=== PATIENT | female | born 1965 | race Caucasian/White ===

== ENCOUNTER 2017-05-27 11:10 | Day surgery (SDC) | payer OTHER ==
[~2017-05-27 11:10] MED LIST: Buffered Lidocaine 0.9% SYRIN* 5 ML/SYR SYRINGE INTRADERM ONE; Sodium Citrate/Citric Acid* 15 ML UDC PO ONE
[2017-05-27] MEDS ORDERED: Sodium Citrate/Citric Acid* 15 ML UDC ONE (11:18)
[2017-05-27] MEDS ORDERED: ceFAZolin 2 GM PREMIX (*) 2 GM/50 ML BAG IVPB ONE (11:18)
[2017-05-27] MEDS ORDERED: Bupivacaine 0.25% SDV* 30 ML ONE (12:34)
[2017-05-27] MEDS ORDERED: fentaNYL* 50 MCG/ML 2 ML VIAL (100 MCG VIAL) ONE ×3 (12:46→16:24)
[2017-05-27] MEDS ORDERED: Midazolam* 1 MG/ML 2 ML VIAL (2 MG) ONE (12:46)
[2017-05-27] MEDS ORDERED: Propofol* 10 MG/ML 20 ML BTL IV PUSH ONE (12:47)
[2017-05-27] MEDS ORDERED: Naloxone* 0.4 MG/ML 1 ML VIAL IV PRN (13:28)
[2017-05-27] MEDS ORDERED: DiMENhydriNATE IV* 50 MG/ML VIAL IV PUSH PRN (13:28)
[2017-05-27] MEDS ORDERED: Ketorolac INJ* 30 MG/ML 1 ML VIAL ONE (14:49)
[2017-05-27] MEDS ORDERED: Dexamethasone IV* 4 MG/ML 1 ML (4 MG) ONE (14:49)
[2017-05-27] MEDS: fentaNYL* 50 MCG/ML 2 ML VIAL (100 MCG VIAL) IV PRN ×4 (15:52→16:13)
[2017-05-27] MEDS ORDERED: HYDROcodone/ACETAMIN 5-325 MG* 1 TAB ONE (16:18)
[2017-05-27] MEDS ORDERED: DiMENhydriNATE IV* 50 MG/ML VIAL ONE (16:45)
[2017-05-27 17:53] VITALS: BP 136/82
--- NOTE | 2017-05-30 07:18 | OP ---
OPERATIVE REPORT: DATE OF OPERATION: 05/27/17 DATE OF : 69 SURGEON: Nhan Henriquez MD SUPERVISOR ROSE GRADING: SATYA Bowling An teacher assistant was needed for the entirety of the procedure to aid in positioning of the arm and retraction. ANESTHESIOLOGIST: Dr. Taveras. ANESTHESIA: General. PRE-OP DIAGNOSES: 1. 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 2. Left scaphotrapezoid osteoarthritis. 3. Left volar wrist ganglion cyst. POST-OP DIAGNOSES: 1. 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 2. Left scaphotrapezoid osteoarthritis. 3. Left volar wrist ganglion cyst. OPERATIVE PROCEDURE: 1. Left thumb carpometacarpal arthroplasty. 2. Left distally based split flexor carpi radialis tendon transfer with some suspension and tendon interposition. 3. Left partial trapeziectomy. 4. Excision of left volar wrist ganglion cyst. INDICATIONS: Ilene has left thumb basal joint arthritis and advanced STT arthritis, ganglion cyst. She has done well with a right thumb carpometacarpal arthroplasty a year ago. She desires surgery on the left. She understands the risks and benefits. ESTIMATED BLOOD LOSS: 2 mL. COMPLICATIONS: None. FINDINGS: As expected. DESCRIPTION OF PROCEDURE: Ilene was seen in the preoperative holding area. The correct side, site, and procedure were identified. We came back to the operating room where the arm was prepped and draped in the usual fashion. A time- out was performed. The arm was exsanguinated. The Esmarch and the tourniquet was inflated to 250 mmHg. I then made a 2 to 3 cm longitudinal incision over the dorsal radial aspect of the thumb and over the trapezium. Dissection was carried down. The radial artery was dissected free and preserved throughout the case. Subperiosteal and capsular flaps were raised to expose the scaphotrapezial, carpometacarpal and trapezium-trapezoid joints. The soft tissue was released about the trapezium and then the trapezium was excised and handed off as a specimen. The FCR tendon was a bit frayed and its distal attachment was intact in the base of the wound. I then examined the scaphotrapezoid joint and indeed there was a full thickness cartilage loss. I took the osteotome and I excised the proximal 3 mm of the trapezoid. This was handed off as an additional specimen. I then made a drill tunnel using a 3.2 mm drill bit in the dorsoradial aspect of the thumb metacarpal base extending on to the volar ulnar articular surface of the base of the thumb metacarpal. I then came proximally and I made a 3-cm longitudinal incision over the distal FCR tendon sheath and over the volar tendon sheath. Dissection was carried down and the radial artery was dissected free proximal to the cyst. The radial artery was mobilized satisfactorily radially. Cyst was excised marginally and taken down back to the volar wrist capsule over the volar scapholunate interval. The cyst was taken off from the volar wrist capsule overlying the volar SL articulation where it came off the capsule and this area was cauterized to close the opening where the cyst came off. I then opened up the FCR tendon sheath. I split the tendon. Tendon sheath was released under the skin, and then about 10 cm proximal to the first incision a 1 cm transverse incision was made. FCR tendon was exposed and sheath was released along the course of the tendon. I then placed a 26-gauge wire in the split in the tendon as the wire was pulled under the skin into the more proximal wound to complete the split of the FCR tendon and release of the musculotendinous junction. The tendon was then sutured, shuttled down into the thumb base wound using a couple of 26- gauge wires. The split in the FCR tendon was taken all the way down to the base of the second metacarpal. The split tear of the tendon was intact through the drill hole in the metacarpal base with background, intact FCR tendon and appropriate tension was set. A 3-0 Ethibond suture was used to secure first all 3 limbs of the transfer, then two additional [id number] sutures were placed, sewing intact limb of the FCR to intact limb. The remainder of the tendon was then sewed into a mat and secured with 4-0 Vicryl suture. This was closed with an interposition between the base of the trapezoid and distal scaphoid. The wounds was then copiously irrigated out. The capsule was repaired with 3-0 Ethibond suture. The operative sites were infiltrated with 0/25% plain Marcaine. The skin was closed with 4-0 nylon suture. Wounds were dressed with Xeroform, 4x4, sterile Webril, and a cockup thumb spica wrist splint was applied. The tourniquet was deflated and patient was woken up and taken to the the recovery room in stable condition. [id number]/[facility] #: [id number] TAMMY
== END 2017-05-27 17:53 | disposition home or self-care (01) ==
LOC: OREAST 11:10
PROVIDERS: ATTEND Orthopaedic Surgery Hand Surgery
DX: M18.12 Unilateral primary osteoarthritis of first carpometacarpal joint, left hand (principal); M19.042 Primary osteoarthritis, left hand; M67.432 Ganglion, left wrist; I10 Essential (primary) hypertension; F41.9 Anxiety disorder, unspecified; F32.9 Major depressive disorder, single episode, unspecified; Z88.5 Allergy status to narcotic agent; Z87.891 Personal history of nicotine dependence
CPT/HCPCS: 88304; 88311; A9270-GY; J0690; J1100; J1240; J1885; J2250; J2704; J3010

== ENCOUNTER 2017-12-09 09:17 | Day surgery (SDC) | payer OTHER ==
[~2017-12-09 09:17] MED LIST changes: +Dexamethasone IV* 4 MG/ML 1 ML (4 MG) IV SLOW PU ONE; +Famotidine IV* 10 MG/ML 2 ML (20 mg) IV ONE; -Sodium Citrate/Citric Acid* 15 ML UDC PO ONE
[2017-12-09] MEDS ORDERED: Dexamethasone IV* 4 MG/ML 1 ML (4 MG) ONE (09:27)
[2017-12-09] MEDS ORDERED: Famotidine IV* 10 MG/ML 2 ML (20 mg) ONE (09:27)
[2017-12-09] MEDS ORDERED: ROPIVACAINE 5 MG/ML 30 ML BTL (0.5%) ONE (10:32)
[2017-12-09] MEDS ORDERED: Lidocaine 1% INJ* 10 MG/ML 30 ML SDV ONE (10:32)
[2017-12-09] MEDS ORDERED: Bupivacaine 0.25% SDV* 30 ML ONE (10:35)
[2017-12-09] MEDS ORDERED: Midazolam* 1 MG/ML 2 ML VIAL (2 MG) ONE (10:38)
[2017-12-09] MEDS ORDERED: fentaNYL* 50 MCG/ML 2 ML VIAL (100 MCG VIAL) ONE (10:38)
[2017-12-09] MEDS ORDERED: Lidocaine 2% PF * 5 ML VIAL ONE (10:39)
[2017-12-09] MEDS ORDERED: Propofol* 10 MG/ML 20 ML BTL IV PUSH ONE (10:39)
[2017-12-09] MEDS ORDERED: Naloxone* 0.4 MG/ML 1 ML VIAL IV PRN (10:43)
[2017-12-09] MEDS ORDERED: fentaNYL* 50 MCG/ML 2 ML VIAL (100 MCG VIAL) IV PRN (10:43)
[2017-12-09] MEDS ORDERED: HYDROcodone/ACETAMIN 5-325 MG* 1 TAB PO PRN (10:43)
[2017-12-09] MEDS ORDERED: ceFAZolin 2 GM in NS PREMIX(*) 2 GM/100 ML BAG IVPB ONE (10:45)
[2017-12-09] MEDS ORDERED: Ketorolac INJ* 30 MG/ML 1 ML VIAL ONE (10:56)
[2017-12-09] MEDS ORDERED: Flumazenil* 0.1 MG/ML 5 ML MDV ONE (12:42)
[2017-12-09] MEDS ORDERED: Flumazenil* 0.1 MG/ML 5 ML MDV IV ONE (12:42)
[2017-12-09] MEDS ORDERED: Naloxone* 0.4 MG/ML 1 ML VIAL ONE (12:54)
[2017-12-09] MEDS ORDERED: oxyCODONE/Acetamin 5/325 MG* TAB ONE ×2 (13:37)
[2017-12-09] MEDS: oxyCODONE/Acetamin 5/325 MG* TAB PO PRN ×2 (13:38→13:39)
[2017-12-09] MEDS ORDERED: DiMENhydriNATE IV* 50 MG/ML VIAL ONE (13:51)
[2017-12-09 14:55] VITALS: BP 129/82
--- NOTE | 2017-12-10 02:39 | OP ---
DATE OF OPERATION: 12/09/17 - [facility] DATE OF : 69. SURGEON: Nhan Henriquez MD. CHEERLEADING COACH: SATYA Bowling. An journeyman operator assistant was needed for the procedure to aid in positioning of the arm and retraction. ANESTHESIOLOGIST: Dr. Eastman. ANESTHESIA: General. PRE-OP DIAGNOSES: 1. Left thumb metacarpal phalangeal in hyperextension laxity and instability. 2. Left thumb ulnar sesamoiditis. 3. Left trigger thumb. POST-OP DIAGNOSES: 1. Left thumb metacarpal phalangeal in hyperextension laxity and instability. 2. Left thumb ulnar sesamoiditis. 3. Left trigger thumb. OPERATIVE PROCEDURE: 1. Left thumb metacarpal phalangeal joint volar capsulodesis with volar plate advancement. 2. Excision of left thumb sesamoid bone. 3. Left trigger thumb release. INDICATIONS: Ilene has had good relief at the base of the thumb after prior basal joint arthroplasty surgery. She has been left with pain in the anterior MCP joint area. I have given her a trigger thumb injection, which helps somewhat. Ultimately, I think, most of the pain is coming from the hyperextension laxity that she has there that has led to some ulnar sesamoiditis. She is very tender of the ulnar sesamoid bone. We have tried to get an MRI to better evaluate the condition. The insurance denied the MRI. Ultimately, we clinical findings and she understands the risks including the risk of stiffness in the joint, the risk of recurrence of the hyperextension laxity, risk of persistent pain despite doing surgery. She wants to proceed. ESTIMATED BLOOD LOSS: 2 mL. COMPLICATIONS: None. FINDINGS: See above and below. DESCRIPTION OF PROCEDURE: Ilene was seen in the preoperative holding area. The correct site, side and procedure were identified. We came back to the operating room. The arm was prepped and draped in the usual fashion. A time- out was performed. I made an anterior V-shaped incision and I could raise a radially based flap off of the tendon sheath. The radial and ulnar digital nerves were identified and protected throughout the case. I then went ahead and released the A1 naseem of the left thumb to release the trigger finger. After completing the trigger finger released, I retracted the tendon out of the way radially. I then created a distally based U-flap of the volar plate by releasing this sharpy with the Washburn blade. In conjunction with this, I went ahead and excised the ulnar sesamoid bone. She had had severe tenderness over the ulnar sesamoid bone. After I released the soft tissue and had completely excised the undersurface of the sesamoid bone, did indeed show degeneration of the articular cartilage. Lastly, I went ahead and placed two MiniMite suture anchors in just proximal to the articular surface of the metacarpal head. I then sewed the 2-0 Ethibond suture into the volar plate in Whipstitch type fashion. I then put traction of my ____ suture and tied off one followed by the next Ethibond suture. This corrected the hyperextension laxity of the MCP joint. The MCP joint now extended to about 10 degrees of flexion and no further. Everything was looking good at his point. So, I irrigated out the wound. Skin was closed with 4-0 nylon suture. A thumb spica splint was applied holding the MCP joint in gentle flexion. The tourniquet was deflated and the thumb pinked up immediately. She was then taken to the recovery room in stable condition. [id number]/[facility] #: [id number] TAMMY
== END 2017-12-09 15:00 | disposition home or self-care (01) ==
LOC: OREAST 09:17
PROVIDERS: ATTEND Orthopaedic Surgery Hand Surgery
DX: M65.312 Trigger thumb, left thumb (principal); M24.242 Disorder of ligament, left hand
CPT/HCPCS: A9270-GY; C1713; J0690; J1100; J1240; J1885; J2250; J2310; J2704; J2795; J3010

== ENCOUNTER → 2018-08-18 12:56 | Day surgery (SDC) | payer OTHER ==
[~2018-08-18 12:56] MED LIST changes: -Buffered Lidocaine 0.9% SYRIN* 5 ML/SYR SYRINGE INTRADERM ONE; +Buffered Lidocaine 1% SYRIN* 1 ML/SYRINGE INTRADERM ONE; +Bupivacaine 0.25% SDV* 30 ML ONE; -Dexamethasone IV* 4 MG/ML 1 ML (4 MG) IV SLOW PU ONE; +Dexamethasone IV* 4 MG/ML 1 ML (4 MG) ONE; -Famotidine IV* 10 MG/ML 2 ML (20 mg) IV ONE; +HYDROcodone/ACETAMIN 5-325 MG* 1 TAB ONE; +Ketorolac INJ* 30 MG/ML 1 ML VIAL ONE; +Lactated Ringers 1000 ML Bag* 1,000 ML IV SCH; +Lidocaine 2% PF * 5 ML VIAL ONE; +Midazolam* 1 MG/ML 2 ML VIAL (2 MG) ONE; +Naloxone* 0.4 MG/ML 1 ML VIAL IV PRN; +Ondansetron INJ* 2 MG/ML VIAL ONE; +Propofol* 10 MG/ML 20 ML BTL ONE; +ceFAZolin 2 GM PREMIX in ORs 2 GM/50 ML BAG ONE; +fentaNYL* 50 MCG/ML 2 ML VIAL (100 MCG VIAL) ONE
[2018-08-18 18:53] VITALS: BP 113/70
--- NOTE | 2018-08-18 22:10 | OP ---
DATE OF OPERATION: 08/18/18 - [facility] DATE OF : 69 SURGEON: Nhan Henriquez MD. OPHTHALMIC TECHNOLOGIST: SATYA Paulino. An lead dental assistant was needed for the procedure to aid in positioning of the arm and retraction. ANESTHESIOLOGIST: Dr. Gutierrez. ANESTHESIA: General. PRE-OP DIAGNOSES: Subsidence and pain, status post left thumb carpometacarpal arthroplasty and partial trapeziectomy. POST-OP DIAGNOSES: Subsidence and pain, status post left thumb carpometacarpal arthroplasty and partial trapeziectomy. OPERATIVE PROCEDURE: Revision left thumb carpometacarpal arthroplasty with Arthrex Mini TightRope suspension and allograft interposition. Please note this is substantially more difficult than a typical carpometacarpal arthroplasty given the fact that it was revision and required the allograft interposition. INDICATIONS: Ilene has done very well with the right carpometacarpal arthroplasty. The left has been persistently bothersome. She had a little bit of MCP joint hyperextension and I thought she might do better by increasing her performance engineer strength by doing a volar MCP capsulodesis; however, the pain at the basal joint has just been persistent. We talked about risks and benefits. She wanted to proceed with revision surgery. ESTIMATED BLOOD LOSS: 2 mL. COMPLICATIONS: None. FINDINGS: See above and below. DESCRIPTION OF PROCEDURE: Ilene was seen in the preoperative holding area. The correct site, side, and procedure were identified. We came back to the operating room. The arm was prepped and draped in the usual fashion. A time- out was performed. The arm was exsanguinated with the Esmarch and the tourniquet was inflated to 250 mmHg. I went ahead and made a longitudinal incision in the location of her prior incision over the thumb base. Dissection was carried down. The radial artery was mobilized and retracted out of the way. The capsule was reopened longitudinally. The prior Ethibond sutures were removed. I released the soft tissue out the base of the thumb metacarpal. The prior tendon transfer, excised all that tendon and the ball of tendon that I placed in there previously , that was all excised. I freshened up her partial trapeziectomy prior to debriding back all the soft tissue that had been interposed there. I took the narrow osteotome, and I took an additional 2 mm of trapezoid off to create a nice flushed proximal trapezoid surface. That was definitely wear between the proximal trapezoid and the distal pole of the scaphoid. I placed some bone wax on the cancellous bone. Once I had everything fully debrided and I freshened up the partial trapeziectomy, I was all very pleased with the site where the prior trapeziectomy had been done. I went ahead and placed my guidewire from my Arthrex Mini TightRope device. This was placed from the thumb base metacarpal up to the base of the second metacarpal. I had made a 1-cm longitudinal incision over the dorsum of the second metacarpal and protected the sensory nerve there while I opened the periosteum off of the base of the second metacarpal and reflected to open the dorsal interosseous. I pulled the wire through together with a Vicryl shuttle suture. I then pulled the Mini Arthrex TightRope device down placing 1 EndoButton on the base of the second metacarpal. I then set the appropriate tension and tied off the EndoButton over the base of the first metacarpal. After I had thrown just a couple of knots, I checked an x-ray to make sure I liked the position. She had full radial and palmar abduction. Everything was looking very good. So, I went ahead and tied the remainder of the knots. At this point, I was very pleased with the suspensionplasty. I went ahead and took some AlloDerm allograft tissue , and I folded up into a mat. I secured the corners of the mat with multiple 3- 0 Ethibond sutures. I pulled traction on the index finger while I placed that mat at the site of the partial trapeziectomy. This completely filled this place to provide excellent soft tissue interposition between the 2 bones. Additionally, it provided excellent soft tissue interposition between the base of the metacarpal and the distal pole of the scaphoid. I added just a little bit more AlloDerm tissue there to complete the soft tissue interposition. At this point, she had full motion in the thumb without any crepitus. It was moving completely smoothly. It felt very good. I irrigated out the wound. The capsule was closed with 3-0 PDS suture. The skin was closed with 4-0 nylon suture. Wounds were dressed with Xeroform, 4x4s, sterile Webril, and a thumb spica splint with the IP joint free was applied. Marcaine had been infiltrated. She was woken up and taken to the recovery room in stable condition. [id number]/[facility] #: [id number] MTDD
== END | disposition home or self-care (01) ==
LOC: OREAST 12:56
PROVIDERS: ATTEND Orthopaedic Surgery Hand Surgery
DX: T81.89XA Other complications of procedures, not elsewhere classified, initial encounter (principal); M18.12 Unilateral primary osteoarthritis of first carpometacarpal joint, left hand; Z87.891 Personal history of nicotine dependence; I10 Essential (primary) hypertension; F41.8 Other specified anxiety disorders; R00.2 Palpitations; F41.9 Anxiety disorder, unspecified
CPT/HCPCS: 76000; C1776; J0690; J1100; J1885; J2250; J2405; J2704; J3010; J3490; Q4116